=== PATIENT | female | born 1950 | race African-American/Black ===

== ENCOUNTER 2017-05-11 00:04 | Emergency (ER) | payer MEDICARE ==
[~2017-05-11] VITALS: Ht 165.1 cm; Wt 63.6 kg
[2017-05-11] MEDS ORDERED: TETANUS, DIPHTHERIA, PERTUSSIS VAC/PF 0.5ML (>7YR OLD) IM ONE (01:00)
[2017-05-11] MEDS ORDERED: CLONIDINE 0.2MG TABLET PO ONE (01:00)
[2017-05-11] MEDS ORDERED: SULFAMETHOXAZOLE/TRIMETHOPRIM 800/160MG TABLET PO ONE (01:00)
[2017-05-11] MEDS ORDERED: BACITRACIN ZINC OINT UDPKT TOP ONE (01:00)
[2017-05-11 02:01] VITALS: BP 195/123
== END 2017-05-11 02:18 | disposition home or self-care (01) ==
LOC: ER 00:04
DX: S51.852A Open bite of left forearm, initial encounter (principal); Y04.1XXA Assault by human bite, initial encounter; Y93.89 Activity, other specified; Y92.098 Other place in other non-institutional residence as the place of occurrence of the external cause; F17.210 Nicotine dependence, cigarettes, uncomplicated; I10 Essential (primary) hypertension
CPT/HCPCS: 90471; 90715; 99284